=== PATIENT | female | born 1990 | race Caucasian/White ===

== ENCOUNTER 2019-06-25 15:26 | Emergency (ER) | payer MEDICAID ==
[~2019-06-25] VITALS: Ht 170.2 cm; Wt 86.6 kg
[2019-06-25 15:49] VITALS: BP 126/84; Ht 170.2 cm; Wt 86.6 kg
== END 2019-06-25 17:26 | disposition home or self-care (01) ==
LOC: ED 15:26
DX: S67.197A Crushing injury of left little finger, initial encounter (principal); J45.909 Unspecified asthma, uncomplicated; W20.8XXA Other cause of strike by thrown, projected or falling object, initial encounter; Y93.89 Activity, other specified; Y92.89 Other specified places as the place of occurrence of the external cause; Y99.8 Other external cause status